=== PATIENT | female | born 1995 | race African-American/Black ===

== ENCOUNTER 2020-12-08 13:06 | Emergency (ER) | payer OTHER, SELFPAY ==
[2020-12-08 13:08] VITALS: BP 112/73; PULSE 73; RESP 16; TEMP 36.3; O2SAT 98
[2020-12-08 14:09] LABS: Basophils Percent Auto 0.3 % (0.2-1.2); Eosinophils Absolute Auto 0.1 K/mm3 (0-0.3); Eosinophils Percent Auto 0.8 % (0-4.4); Hematocrit 42.3 % (37.0-47.0); Hemoglobin 14.4 g/dL (12.0-15.0); Immature Granulocyte Absolute 0.01 K/mm3 (0.00-0.031); Immature Granulocyte Percent A 0.1 % (0-0.5); Lymphocytes Absolute Auto 1.91 K/mm3 (0.9-3.2); Mean Corpuscular Hemoglobin 30.2 pg (26-34); Mean Corpuscular Volume 88.7 fl (80-100); Mean Platelet Volume 11.2 fl (7.4-10.4); Monocytes Absolute Auto 0.6 K/mm3 (0.1-0.6); Monocytes Percent Auto 8.3 % (2.6-8.5); Neutrophils Absolute Auto 4.5 K/mm3 (1.3-6.7); Neutrophils Percent Auto 63.5 % (45.5-73.1); Platelet Count Result 236 k/mm3 (150-375); Red Blood Count 4.77 M/mm3 (4.2-5.4); Red Cell Distribution Width 12.3 % (11.5-14.5); White Blood Count 7.1 K/mm3 (4.5-10.0)
[2020-12-08 14:18] VITALS: BP 103/68; PULSE 64
[2020-12-08 14:19] VITALS: BP 106/68; PULSE 78
[2020-12-08 14:20] VITALS: BP 102/66; PULSE 80
[2020-12-08 14:21] LABS: Alanine Aminotransferase 19 U/L (4-35); Albumin Level 4.2 g/dL (3.5-5.1); Alkaline Phosphatase 82 U/L (38-126); Anion Gap 6 mmol/L (8-16); Aspartate Amino Transferase 26 U/L (14-36); Bilirubin,Total 0.3 mg/dL (0.2-1.3); Blood Urea Nitrogen 14 mg/dL (7-17); Calcium 9.2 mg/dL (8.4-10.2); Carbon Dioxide 28 mmol/L (22-30); Chloride 106 mmol/L (98-107); Estimated CRCL calculation 77 ml/min; Estimated Glomerular Filt Rate > 60; Glucose 92 mg/dL (65-105); Potassium 4.4 mmol/L (3.4-5.0); Sodium 140 mmol/L (137-145)
--- NOTE | 2020-12-08 14:23 | ED.GENADULT ---
HPI - General Adult General Chief complaint: Unspecified Stated complaint: ST & vag bleed x 1month Time Seen by Provider: 12/08/20 13:25 Source: patient and RN notes reviewed Mode of arrival: ambulatory Limitations: no limitations History of Present Illness HPI narrative: Patient is 25 years old -Russian female presents with cold symptoms in the form of runny nose, sneezing, productive cough and sore throat that started 4 days ago. Patient denies any fever, chills, nausea, vomiting, headache, shortness of breath. 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 Patient also complaining of constant vaginal bleeding. Patient had her menstrual cycle November 21 and has been bleeding since. Patient denies any lightheadedness or dizziness or having similar symptoms. Related Data Home Medications Medication Instructions Recorded Confirmed Apple Cider Vinegar Complex 12/08/20 berberine-herbal comb no.18 12/08/20 Allergies Allergy/AdvReac Type Severity Reaction Status Date / Time No Known Allergies Allergy Verified 12/08/20 13:11 Review of Systems Review of Systems: Narrative: CONSTITUTIONAL: Denies fever, chills, or sweats. EYES: Denies visual changes, redness, or discharge. ENT: Denies rhinorrhea, congestion, sore throat, or otalgia. CARDIOVASCULAR: Denies chest pain, palpitations, or edema. RESPIRATORY: Denies cough or dyspnea. GASTROINTESTINAL: Denies abdominal pain, nausea, vomiting, or diarrhea. GENITOURINARY: Denies dysuria or hematuria. SKIN: Denies rash or itching. MUSCULOSKELETAL: Denies back pain, joint pain, or myalgia. NEUROLOGIC: Denies headache, numbness, or weakness. PSYCHIATRIC: Denies anxiety or depression. Exam Narrative: Exam Narrative: General appearance: Well-developed, well-nourished Skin: Normal color Head: Normocephalic, nontraumatic Eyes: Clear conjunctiva ENT: Oropharynx normal, ears normal, nose normal Neck: Supple, nontender Chest and respiratory: Airway patent, no respiratory distress, no accessory muscle use Heart: Regular rate/rhythm Abdomen: Soft, nontender, no organomegaly, quiet bowel sounds Vascular: Normal peripheral pulses, normal capillary refill. 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 Dark red blood, 2 long Q-tip was enough to dry th) Speculum Exam - Cervix: Other cervical findings present (Patient is not cooperative during the pelvic exam, unable to evaluate the c) Course Vital Signs Vital signs: Vital Signs Temperature 36.3 C L 12/08/20 13:08 Pulse Rate 73 12/08/20 13:08 Respiratory Rate 16 12/08/20 13:08 Blood Pressure 112/73 12/08/20 13:08 Pulse Oximetry 98 12/08/20 13:08 Temperature 36.3 C L 12/08/20 13:08 Pulse Rate 80 12/08/20 14:20 Respiratory Rate 16 12/08/20 13:08 Blood Pressure 102/66 12/08/20 14:20 Pulse Oximetry 98 12/08/20 13:08 Medical Decision Making MDM Narrative Medical decision making narrative: Cold-like symptoms, COVID-19 infection is suspected, Menorrhagia since November 21. Anemia, miscarriage, menorrhagia of unknown etiology is my concern. Labs, COVID-19 infection swab, orthostatic blood pressure, test ordered. Further plan to follow Differential Diagnosis Differential Diagnosis: Upper respiratory infection, anemia, menorrhagia, miscarriage Vital Signs Vital Signs: Vital Signs Temperature 36.3 C L 12/08/20 13:08 Pulse Rate 73 12/08/20 13:08 Respiratory Rate 16 12/08/20 13:08
[2020-12-08 16:36] VITALS: BP 112/72; PULSE 73; RESP 16; O2SAT 100
[2020-12-08 23:58] LABS: SARS-CoV-2 RNA PCR Negative
[2020-12-11 07:54] LABS: HCG Tumor Marker <3 mIU/mL (***)
== END 2020-12-08 16:39 | disposition home or self-care (01) ==
PROVIDERS: Emergency Provider Emergency Medicine
DX: Z20.822 Contact with and (suspected) exposure to COVID-19 (principal); J06.9 Acute upper respiratory infection, unspecified; B34.9 Viral infection, unspecified; N92.0 Excessive and frequent menstruation with regular cycle
CPT/HCPCS: 36415; 80053; 84702; 85025; 87804; 99284; C9803; U0003; U0005

== ENCOUNTER 2021-11-22 04:29 | Emergency (ER) | payer OTHER, SELFPAY ==
--- NOTE | ~2021-11-22 | XR_ITS ---
EXAMINATION: XR knee RT 3V DATE: 11/22/2021 05:30 INDICATION: Right knee pain. TECHNIQUE: 3 views of right knee were obtained. COMPARISON: None. FINDINGS: Bone alignment is normal. There is sclerosis in medial tibial condyle. There is mild osteoa rthritis of medial and patellofemoral compartments characterized by tiny osteophytes. No joint space narrowing. No knee joint effusion. IMPRESSION: 1. Sclerosis in medial tibial condyle, which may be a healing stress fracture. 2. Mild right knee osteoarthritis. Reviewed, dictated and finalized at location A. D LIEUTENANT
--- NOTE | ~2021-11-22 | XR_ITS ---
EXAMINATION: XR knee LT 3V DATE: 11/22/2021 05:30 INDICATION: Anterior left knee pain. TECHNIQUE: 3 views of left knee were obtained. COMPARISON: None. FINDINGS: Bone alignment is normal. There is sclerosis in medial tibial condyle. There is mild osteoa rthritis of lateral and patellofemoral compartments characterized by tiny marginal osteophytes. No maia int space narrowing. No knee joint effusion. IMPRESSION: 1. Sclerosis in medial tibial condyle, which may be a healing stress fracture. 2. Mild left knee osteoarthritis. Reviewed, dictated and finalized at location A. D CARE DIRECTOR
[2021-11-22 04:36] VITALS: BP 116/61; PULSE 81; RESP 17; TEMP 36.1; O2SAT 100
[2021-11-22 04:41] VITALS: BP 118/71; PULSE 72; RESP 18; TEMP 36.4; O2SAT 100
--- NOTE | 2021-11-22 05:15 | ED.EXTPRO ---
HPI - Extremity Problem General Chief complaint: Extremity Problem,Nontraumatic Stated complaint: leg pain since august Time Seen by Provider: 11/22/21 04:47 Source: patient Mode of arrival: ambulatory Limitations: no limitations History of Present Illness HPI Narrative: Patient is a 26-year-old female complaining of bilateral knee pain that started a month ago after going through boot camp for 10 weeks, we did a lot of running . Patient denies any calf pain or swelling. Patient denies any injury. Patient denies any knee swelling or redness. Related Data Home Medications Medication Instructions Recorded Confirmed Apple Cider Vinegar Complex 12/08/20 berberine-herbal comb no.18 12/08/20 Allergies Allergy/AdvReac Type Severity Reaction Status Date / Time No Known Allergies Allergy Verified 12/08/20 13:11 Review of Systems Review of Systems: Per HPI All systems reviewed & are unremarkable except as noted in HPI and below PMFSH Comments Past medical history: None Family history: None Social history: Non-smoker no EtOH or drug use Exam Const: General: no acute distress and alert Orientation/consciousness: patient oriented x3 HENMT: Head: normal to inspection Eyes: Conjunctivae: conjunctivae normal Neck: Neck: normal visual inspection Resp: Effort & Inspection: normal respiratory effort Skin: General skin exam: normal color, no jaundice and no pallor Rashes: no rashes Neuro: General: patient oriented x3, moves all extremities and no focal motor deficits Speech: normal speech Gait exam (Neuro): Normal gait present Extrem: General: normal to inspection, no clubbing, cyanosis or edema, no pedal edema and no edema Course Vital Signs Vital signs: Vital Signs Temperature 36.1 C L 11/22/21 04:36 Pulse Rate 81 11/22/21 04:36 Respiratory Rate 17 11/22/21 04:36 Blood Pressure 116/61 11/22/21 04:36 Pulse Oximetry 100 11/22/21 04:36 Temperature 36.4 C 11/22/21 04:41 Pulse Rate 72 11/22/21 04:41 Respiratory Rate 18 11/22/21 04:41 Blood Pressure 118/71 11/22/21 04:41 Pulse Oximetry 100 11/22/21 04:41 Discharge Plan Discharge Clinical Impression: Muscle strain of knee Patient Disposition: Home, Self-Care Condition: Stable Instructions: Muscle Strain (ED) Prescriptions: No Action Apple Cider Vinegar Complex RF: 0 berberine-herbal comb no.18 RF: 0 ipratropium bromide 42 mcg (0.06 %) spray,non-aerosol 2 spray intranasal QID 4 Days RF: 0 Follow-up/Referrals: PHYSICIAN NOT ON STAFF,NONSTAFF [Primary Care Provider] - Time of Disposition: 05:18
[2021-11-22 06:10] VITALS: BP 100/61; PULSE 73; RESP 20; TEMP 36.4; O2SAT 100
[2021-11-22 06:11] VITALS: BP 100/61; PULSE 73; RESP 20; TEMP 36.4; O2SAT 100
[2021-11-22 06:18] VITALS: BP 100/61; PULSE 73; RESP 20; TEMP 36.4; O2SAT 100
== END 2021-11-22 06:23 | disposition home or self-care (01) ==
LOC: ANHED 05:39
PROVIDERS: Emergency Provider Emergency Medicine
DX: S86.912A Strain of unspecified muscle(s) and tendon(s) at lower leg level, left leg, initial encounter (principal); S86.911A Strain of unspecified muscle(s) and tendon(s) at lower leg level, right leg, initial encounter; M17.0 Bilateral primary osteoarthritis of knee; M89.9 Disorder of bone, unspecified; X50.9XXA Other and unspecified overexertion or strenuous movements or postures, initial encounter; Y93.02 Activity, running
CPT/HCPCS: 73562; 99284

== ENCOUNTER 2021-11-28 12:25 | Emergency (ER) | payer OTHER, SELFPAY ==
[2021-11-28 12:30] VITALS: BP 114/58; PULSE 73; RESP 16; TEMP 36.4; O2SAT 100
[2021-11-28] MEDS: KETOROLAC (*BKC) 60 MG/2 ML VIAL IM (13:16)
--- NOTE | 2021-11-28 18:36 | ED.LOWEXIN ---
HPI - Extremity Injury (Lower) General Chief Complaint: Extremity Injury, Lower Stated Complaint: lower extremity pain Time Seen by Provider: 11/28/21 12:44 Source: patient Mode of arrival: ambulatory Limitations: no limitations History of Present Illness HPI Narrative: 26-year-old female presents today with complaints of bilateral knee pain and bilateral ankle pain after a fall she sustained in May. Patient noted relief after using Excedrin. But states that her stomach has issues at times when she uses too much. Patient gait steady. Patient denies any numbness or tingling. Patient denies any back pain. Related Data Allergies Allergy/AdvReac Type Severity Reaction Status Date / Time No Known Allergies Allergy Verified 11/28/21 12:32 Review of Systems Review of Systems: CONSTITUTIONAL: Denies fever, chills, or sweats. EYES: Denies visual changes, redness, or discharge. ENT: Denies rhinorrhea, congestion, sore throat, or otalgia. CARDIOVASCULAR: Denies chest pain, palpitations, or edema. RESPIRATORY: Denies cough or dyspnea. GASTROINTESTINAL: Denies abdominal pain, nausea, vomiting, or diarrhea. GENITOURINARY: Denies dysuria or hematuria. SKIN: Denies rash or itching. MUSCULOSKELETAL: Intermittent bilateral knee and ankle pain. Denies back pain or myalgia. NEUROLOGIC: Denies headache, numbness, dizziness, or weakness. PSYCHIATRIC: Denies anxiety or depression. Exam Narrative: GENERAL: Well-appearing, well-nourished, and in no acute distress. HEAD: Normocephalic, atraumatic. EYES: PERRLA and EOMI. ENT: Nares clear, no rhinorrhea or epistaxis. Mucous membranes moist. Oropharynx without tonsillar hypertrophy exudate or other lesions. Bilateral TMs pearly peterson nonbulging NECK: Supple. No adenopathy or masses. No carotid bruits or JVD CHEST: Clear to auscultation. No respiratory distress. No wheezes rales or rhonchi HEART: Regular rate and rhythm. No murmur heard. Normal peripheral pulses. ABDOMEN: Soft, nontender, nondistended, normal active bowel sounds. EXTREMITIES: Tenderness to medial ligaments on bilateral knees. Tenderness to medial ankle. normal range of motion. No edema. SKIN: Warm, dry, no rash. NEURO: No focal deficits. Alert and oriented x3. PSYCH: Normal mood and affect. Course Course Emergency Course: Injury discussed with patient. No indications for imaging at this time. Patient is aware. Patient instructed to follow-up with primary or Ortho for further management. Patient given meloxicam and instructed to take no other NSAIDs while taking meloxicam. Patient instructed she can use Tylenol as needed for pain or topical analgesics. Patient also instructed to eat food with meloxicam. Vital Signs Vital signs: Vital Signs Temperature 36.4 C 11/28/21 12:30 Pulse Rate 73 11/28/21 12:30 Respiratory Rate 16 11/28/21 12:30 Blood Pressure 114/58 L 11/28/21 12:30 Pulse Oximetry 100 11/28/21 12:30 Temperature 36.4 C 11/28/21 12:30 Pulse Rate 73 11/28/21 12:30 Respiratory Rate 16 11/28/21 12:30 Blood Pressure 114/58 L 11/28/21 12:30 Pulse Oximetry 100 11/28/21 12:30 MDM - Extremity Injury (Lower) Differential Diagnosis Differential diagnosis: Likely ankle sprain and strain, ankle fracture and other (Any fractures, ligament injuries to bilateral knees and bilateral ankles,) Medical Records Attestation: I reviewed the patient's medical records. Discharge Plan Discharge Clinical Impression: Chronic pain of both knees Patient Disposition: Home, Self-Care Condition: Stable Instructions: Antibiotic Form Additional Instructions: Take medication as prescribed. Tylenol for breakthrough pain. follow up with primary or ortho. Prescriptions: New meloxicam 15 mg tablet 15 mg PO DAILY Qty: 30 RF: 0 Follow-up/Referrals: Nikunj Saenz MD [Physician] - PHYSICIAN,PROSTHETIC AIDE [Primary Care Provider] - 3 Days Stand Alone Forms: Work/School Release IP
== END 2021-11-28 13:59 | disposition home or self-care (01) ==
PROVIDERS: Emergency Provider Nurse Practitioner Family
DX: M25.562 Pain in left knee (principal); M25.561 Pain in right knee; G89.21 Chronic pain due to trauma
CPT/HCPCS: 96372; 99283; J1885

== ENCOUNTER 2021-12-12 07:42 | Outpatient (CLI) | payer OTHER, SELFPAY ==
--- NOTE | ~2021-12-12 | MR_ITS ---
EXAMINATION: MR knee LT wo con DATE: 12/12/2021 08:26 INDICATION: Left knee pain TECHNIQUE: Magnetic resonance imaging (MRI) of the left knee was performed without intravenous contra st. Sequences included coronal PD-weighted FSE, coronal PD-weighted FS FSE, sagittal T2-weighted FSE , sagittal PD-weighted FS FSE and axial PD weighted fat saturated FSE. COMPARISON: None. FINDINGS: Medial compartment: Medial meniscus is normal. Articular cartilage is normal. Lateral compartment: Lateral meniscus is normal. Articular cartilage is normal. Patellofemoral compartment: Focal chondral swelling with heterogeneous signal and mild surface irregularity suggesting partial th ickness fissuring at the inferior aspect of the medial trochlea. Remaining patellofemoral cartilage i s normal. Ligaments and tendons: Anterior and posterior cruciate ligaments are normal. The medial collateral ligament and fibular george ateral ligament complex are normal. The extensor mechanism is normal. The visualized medial and later al hamstring tendons as well as the iliotibial band are normal. Fluid: Physiologic amount of fluid in the joint space. No loose osteochondral bodies identified. Osseous/other: Normal marrow signal. No fracture or abnormal marrow replacing process. There is edema at the lateral side of the infrapatellar and deep suprapatellar fat pads consistent with fat pad impingement syndro me. IMPRESSION: 1. Edema at the lateral side of the infrapatellar and deep suprapatellar fat pads consistent with fat pad impingement syndrome. 2. Small focus of low to moderate grade chondromalacia at the inferior aspect of the medial trochlea. Otherwise normal cartilage, menisci and stabilizing ligaments. Reviewed, dictated and finalized at location A. IMPRESSION: 1. Edema at the lateral side of the infrapatellar and deep suprapatellar fat pa ds consistent with fat pad impingement syndrome. 2. Small focus of low to moderate grade chondromalacia at the inferior aspect o f the medial trochlea. Otherwise normal cartilage, menisci and stabilizing liga ments.
== END 2021-12-12 07:43 | disposition home or self-care (01) ==
PROVIDERS: Visit Provider Orthopaedic Surgery
DX: M79.89 Other specified soft tissue disorders (principal); M94.262 Chondromalacia, left knee
CPT/HCPCS: 73721

== ENCOUNTER 2022-04-21 11:20 | Outpatient (CLI) | payer OTHER, SELFPAY ==
[2022-04-21 12:10] LABS: Beta HCG Quantitative < 2.39 mIU/ML
== END 2022-04-21 11:21 | disposition home or self-care (01) ==
LOC: ANHLAB 11:23
PROVIDERS: Visit Provider Obstetrics & Gynecology
DX: N92.6 Irregular menstruation, unspecified (principal)
CPT/HCPCS: 36415; 84702

== ENCOUNTER 2022-09-17 12:41 | Emergency (ER) | payer OTHER, SELFPAY ==
[2022-09-17 12:49] VITALS: BP 100/65; PULSE 72; RESP 20; TEMP 37; O2SAT 100
[2022-09-17 15:01] VITALS: BP 114/71; PULSE 73; O2SAT 100
--- NOTE | 2022-09-17 15:59 | ED.EXTPRO ---
HPI - Extremity Problem General Chief complaint: Extremity Problem,Nontraumatic Stated complaint: bilateral leg and ankle pain Time Seen by Provider: 09/17/22 14:50 History of Present Illness HPI Narrative: Patient is a 27-year-old female who presents ER with pain to her knees and ankles bilaterally. Reports she has chronic pain and was evaluated for disability yesterday. She reports that perform range of motion exercises and she has been sore since then. She has tried no medication at home. No redness or swelling. No numbness or tingling. No fevers or chills or sweats. No additional concerns. She does not know who the physician was that performed the exam nor his qualifications. Related Data Allergies Allergy/AdvReac Type Severity Reaction Status Date / Time No Known Allergies Allergy Verified 07/13/22 08:44 Review of Systems Constitutional: Constitutional: Reports no additional constitutional complaints Musculoskeletal: Musculoskeletal: Reports no additional musculoskeletal complaints, Reports arthralgias, Denies joint swelling and Denies muscle cramps Integumentary/Breasts: Skin/Breast: Reports system reviewed and no additional complaints, except as docu PMFSH Past Medical History Medical History Arthritis Encounter for screening examination for sexually transmitted disease Nausea Osteoporosis Family History Family History Other Arthritis Breast cancer Depression Diabetes mellitus Hypertension Social History Social History Smoking status: Never smoker Alcohol intake: current Drinks per week: 2 Substance use: never Substance use type: does not use Additional living arrangements comments: single Gender identity (if verbalized by the patient): Female Sexual Orientation (if Verbalized by the Patient): Straight or Heterosexual Exam Narrative: GENERAL: Well-appearing, well-nourished, and in no acute distress. HEAD: Normocephalic, atraumatic. CHEST: Clear to auscultation. No respiratory distress. HEART: Regular rate and rhythm. Normal peripheral pulses.d. EXTREMITIES: Normal range of motion but patient resists range of motion during exam. No edema. No effusion of the knee Or swelling of ankles. No redness of the joints. SKIN: Warm, dry, no rash. NEURO: Alert and oriented x3. PSYCH: Normal mood and affect. Course Course Emergency Course: Patient resting comfortably. Reports she needs some prescription anti-inflammatory medication. Discussed ibuprofen versus naproxen and patient prefers naproxen due to infrequent dosing. Vital Signs Vital signs: Vital Signs Temperature 98.6 F 09/17/22 12:49 Pulse Rate 72 09/17/22 12:49 Respiratory Rate 20 09/17/22 12:49 Blood Pressure 100/65 09/17/22 12:49 Pulse Oximetry 100 09/17/22 12:49 Oxygen Delivery Room Air 09/17/22 12:49 Temperature 98.6 F 09/17/22 12:49 Pulse Rate 73 09/17/22 15:01 Respiratory Rate 20 09/17/22 12:49 Blood Pressure 114/71 09/17/22 15:01 Pulse Oximetry 100 09/17/22 15:01 Oxygen Delivery Room Air 09/17/22 12:49 Discharge Plan Discharge Clinical Impression: Chronic knee pain, Chronic ankle pain Patient Disposition: Home, Self-Care Condition: Stable Instructions: Chronic Pain (ED) Additional Instructions: Return the ER if your ankle or knee becomes red and hot, you have fever over 100.4 ?F, you suffer new injury, you have additional concerns. Prescriptions: New naproxen 500 mg tablet 500 mg PO BID Qty: 14 0RF No Action spironolactone 25 mg tablet 50 mg PO DAILY Qty: 30 1RF metformin 500 mg tablet 1,500 mg PO DAILY Qty: 90 2RF Follow-up/Referrals: PHYSICIAN NOT ON STAFF,NONSTAFF [Primary Care Provider] - 1 Week
== END 2022-09-17 16:35 | disposition home or self-care (01) ==
PROVIDERS: Emergency Provider Emergency Medicine
DX: M25.562 Pain in left knee (principal); M25.561 Pain in right knee; M25.572 Pain in left ankle and joints of left foot; M25.571 Pain in right ankle and joints of right foot; G89.29 Other chronic pain
CPT/HCPCS: 99283

== ENCOUNTER 2022-10-02 14:40 | Outpatient (CLI) | payer OTHER, SELFPAY ==
[2022-10-02 16:05] LABS: HIV 1/2 Ab P24 Ag Result Negative (Negative)
[2022-10-02 16:54] LABS: Hepatitis B Surface Antigen Negative (Negative)
[2022-10-02 16:56] LABS: Rapid Plasma Reagin Non-Reactive (NonReactive)
[2022-10-02 17:04] LABS: HAV RESULT Negative (Negative)
[2022-10-02 22:14] LABS: Hepatitis C Virus Antibody Negative (Negative)
== END 2022-10-02 14:41 | disposition home or self-care (01) ==
LOC: ANHLAB 14:42
PROVIDERS: Visit Provider Student in an Organized Health Care Education/Training Program
DX: Z20.2 Contact with and (suspected) exposure to infections with a predominantly sexual mode of transmission (principal)
CPT/HCPCS: 36415; 86592; 86695; 86696; 86703; 86709; 86803; 87340; G0432

== ENCOUNTER 2023-04-28 12:04 | Outpatient (CLI) | payer OTHER, SELFPAY ==
[2023-04-28 14:11] LABS: Thyroid Stimulating Hormone 0.264 uIU/mL (0.465-4.680)
[2023-04-28 16:51] LABS: Free T4 Free Thyroxine 1.31 ng/mL (0.78-2.19)
[2023-05-02 12:55] LABS: DHEA-Sulfate 350 mcg/dL (18-391)
[2023-05-03 09:54] LABS: Testosterone Free 3.2 pg/mL (0.2-5.0); Testosterone Total 18 ng/dL (2-45)
== END 2023-04-28 12:05 | disposition home or self-care (01) ==
PROVIDERS: Visit Provider Internal Medicine
DX: R63.5 Abnormal weight gain (principal); E28.2 Polycystic ovarian syndrome; L68.0 Hirsutism; R06.83 Snoring
CPT/HCPCS: 36415; 82627; 83498; 84402; 84403; 84439; 84443

== ENCOUNTER 2023-05-01 14:01 | Outpatient (CLI) | payer OTHER, SELFPAY | END 2023-05-01 14:02 | disposition home or self-care (01) | PROVIDERS: Visit Provider Internal Medicine | DX: E28.2 Polycystic ovarian syndrome (principal); R63.5 Abnormal weight gain | CPT/HCPCS: 82530 ==

== ENCOUNTER 2023-05-22 12:43 | Outpatient (CLI) | payer OTHER, SELFPAY ==
[2023-05-25 04:45] LABS: Thyroid Peroxidase Antibodies 4 IU/mL (<9)
[2023-05-29 14:39] LABS: Thyroid Stimulating Immunoglob <89 % baseline (<140)
== END 2023-05-22 12:44 | disposition home or self-care (01) ==
PROVIDERS: Visit Provider Internal Medicine
DX: R63.5 Abnormal weight gain (principal)
CPT/HCPCS: 36415; 84445; 86376

== ENCOUNTER 2023-05-31 09:46 | Outpatient (CLI) | payer OTHER, SELFPAY ==
--- NOTE | 2023-06-25 12:25 | WPDSLEEPSTUD ---
Sleep Study Date of Study: 05/31/23 Ordering Provider: GREGORY Coleman Interpreting Physician: Patricia Ghosh MD Sleep Study Type: Polysomnogram Height: 1.57 m Weight: 88.904 kg Body Mass Index: 35.8 Neck Circumference (inches): 13.5 [place]: 14 Reason for Sleep Study Hypersomnolence Sleep History Jaci Thrasher is a 28-year-old female with complaints of snoring. Others told her about it when she was in boot camp in 2020. She has a medical comorbidity of PCOS. She wakes up in the middle of the night, frequently tossing and turning due to feeling hot. There is a family history of sleep issues, both parents snore, her dad wakes up choking at night. She rarely awakens from sleep feeling short of breath. She rarely awakens at night with heartburn, belching or coughing. She always snores loudly enough that others complain. She constantly has difficulty sleeping when she has a cold. She occasionally wakes up gasping for breath at night. She constantly sweats excessively at night. She does not notice her heart pounding or beating irregularly at night. She frequently falls asleep during the day, rarely falls asleep involuntarily, never falls asleep while driving. She does not have loss of muscle tone with strong emotion. She frequently has daytime difficulties due to excessive sleepiness, currently she is unemployed. She does not feel paralyzed on waking or falling asleep. She constantly has vivid dreamlike scenes upon awakening or falling asleep. She does not feel afraid to go to sleep. She frequently has nightmares. She constantly remembers her dreams. She constantly has racing thoughts. She occasionally feels sad or depressed. She frequently has anxiety. She constantly has muscular tension. She occasionally notices parts of her body jerking. She occasionally kicks at night. She denies having crawling or aching feelings in her legs. She always has leg pain at night. She occasionally has morning jaw pain. She frequently grinds her teeth during sleep. She frequently is bothered by pain during the day. She constantly is bothered by pain at night, constantly wakes up feeling stiff in the morning with sore achy muscles and pain in the neck and spine. She has concentration difficulties, fatigue, headaches, and she take sedatives. Normal bedtime is between 6:00 p.m. and 8:00 p.m., taking 1 to 1-1/2 hours fall asleep. She wakes once or twice at night. While awake, she may use her cell phone to scroll on [employer], [employer],or watch YouTube videos. Her normal wake time is between 3:00 a.m. and 6:00 a.m.. She keeps the same schedule on weekends. She estimates getting between 5 and 7 hours of sleep at night. She takes naps in the afternoon or evening. She is not refreshed after short 10-15 minute nap. habits: Tobacco: Never. Caffeine: between 65 and 200 mg daily. No alcohol or recreational substances. [facility] Past Medical History Medical History (Updated 06/25/23 @ 12:51 by Patricia Ghosh MD) Arthritis Chondromalacia patellae of left knee Encounter for screening examination for sexually transmitted disease HSV-1 infection HSV-2 infection Irregular bleeding Left knee injury Mastalgia Nausea Osteoporosis PCOS (polycystic ovarian syndrome) Snoring Vaginal irritation Surgical History Surgical History No pertinent past surgical history Family History Family History Other Acute myocardial infarction great grandmother Diabetes mellitus great aunt Sibling Asthma sister Grandparent Breast cancer Mother Depression Social History Social History Smoking status: Never smoker Alcohol intake: former Alcohol use details: Last use 09/2022 Substance use: never Substance use type: does not use Lack of Transportation: N
[2023-06-25 12:27] VITALS: BMI 35.8
== END 2023-06-01 07:21 | disposition home or self-care (01) ==
LOC: ANHCSM 09:46
PROVIDERS: Visit Provider Physician Assistant
DX: G47.10 Hypersomnia, unspecified (principal); R06.83 Snoring; Z72.821 Inadequate sleep hygiene
CPT/HCPCS: 95810

== ENCOUNTER 2024-11-13 16:22 | Outpatient (CLI) | payer OTHER, SELFPAY ==
[2024-11-13 18:33] LABS: Hepatitis B Surface Antigen Negative (Negative)
[2024-11-13 18:39] LABS: HAV RESULT Negative (Negative); Hepatitis B Core IgM Result Negative (Negative)
[2024-11-13 18:40] LABS: HIV 1/2 Ab P24 Ag Result Negative (Negative)
[2024-11-13 18:51] LABS: Hepatitis C Virus Antibody Negative (Negative)
[2024-11-13 18:55] LABS: Syphilis IgG/IgM Antibody Negative (Negative)
== END 2024-11-13 16:23 | disposition home or self-care (01) ==
LOC: ANHLAB 16:25
PROVIDERS: Visit Provider Obstetrics & Gynecology
DX: Z11.3 Encounter for screening for infections with a predominantly sexual mode of transmission (principal)
CPT/HCPCS: 36415; 80074; 86593; 86695; 86696; 86703; G0432

== ENCOUNTER 2025-08-03 11:24 | Outpatient (CLI) | payer OTHER, SELFPAY ==
[2025-08-03 13:13] LABS: Syphilis IgG/IgM Antibody Non-Reactive (Nonreactive)
[2025-08-03 13:15] LABS: Hepatitis B Surface Antigen Negative (Negative)
[2025-08-03 13:21] LABS: HAV RESULT Negative (Negative); Hepatitis B Core IgM Result Negative (Negative)
[2025-08-03 13:25] LABS: HIV 1/2 Ab P24 Ag Result Negative (Negative)
== END 2025-08-03 11:25 | disposition home or self-care (01) ==
LOC: ANHLAB 11:25
PROVIDERS: Visit Provider Student in an Organized Health Care Education/Training Program
DX: Z20.2 Contact with and (suspected) exposure to infections with a predominantly sexual mode of transmission (principal)
CPT/HCPCS: 36415; 80074; 86593; 86703; G0432